=== PATIENT | female | born 1980 | race Caucasian/White ===

== ENCOUNTER 2021-01-01 10:47 | Outpatient (CLI) | payer BC, MEDICAID, SELFPAY ==
--- NOTE | 2021-01-01 11:14 | ECG_ITS ---
[facility] Test Date: 2021-01-01 Pat Name: Jasmine Vanegas Department: Room: Gender: Female Legal Executive: : 1980 Requested By: Margie Scanlon Order Number: [id number] Major MD: Halley Agrawal M.D. Interpretive Statements NAME OF STUDY: TREADMILL STRESS TEST INDICATION: Chest Pain Baseline blood pressure of 115/71 mm Hg, heart rate 69 beats per minute. EKG showed normal sinus rhythm, normal axis with non specific T wave abnormality. ??? The patient exercised for 7 minutes and 1 second on a [standard Chele protocol]. Patient attained a maximum heart rate of 162 beats per minute( 90% of the maximum predicted heart rate) with a blood pressure at the peak exercise of 155/64 mm Hg. The EKG at the peak exercise revealed sinus tachycardia with no significant ST-T wave changes. Patient did not have any chest pain or any significant arrhythmis with the exercise. During the recovery phase, there were no new changes. ??? Blood pressure at the end of the recovery phase was 152/83 mm Hg with a heart rate of 97 beats per minute. ??? CONCLUSION: 1. Normal EKG response to treadmill exercise. 2. No exercise-induced chest pain or cardiac arrhythmia. 3. Fair exercise tolerance, attained a maximum of 10.2 METs. Maximum VO2 of 35.7 ml/kg/min. 4. Baseline normal blood pressure with normal response to exercise. Electronically Signed On 01-04-2021 20:40:13 CDT by Halley Agrawal M.D. [id number]
[2021-01-01 11:22] VITALS: BMI 30.1
[2021-01-01 11:50] VITALS: BP 152/87; PULSE 99
== END 2021-01-01 10:48 | disposition home or self-care (01) ==
LOC: CDL 10:51
PROVIDERS: PCP Nurse Practitioner Family; Visit Provider Nurse Practitioner Family
DX: R07.9 Chest pain, unspecified (principal)
CPT/HCPCS: 93017

== ENCOUNTER 2021-02-12 13:03 | Outpatient (CLI) | payer BC, MEDICAID, SELFPAY ==
--- NOTE | 2021-02-12 13:11 | US_ITS ---
WS: [id number] ULTRASOUND THYROID TECHNIQUE: Ultrasound of the thyroid. CLINICAL INFORMATION: NECK SWELLING COMPARISON: None. FINDINGS: Thyroid: Right and left thyroid lobes are normal in size and echotexture. Cystic appearing right-sided nodules with comet tail artifact consistent with colloid cysts. A few subcentimeter cystic lesions left thyroid. No solid lesions. No lesions to target for biopsy. Right thyroid lobe: 4.1 cm x 1.6 cm x 1.4 cm Left thyroid lobe: 4.2 cm x 1.3 cm x 1.6 cm. Isthmus: 0.3 mm. Cervical lymphadenopathy: None. US/US thyroid 55052 IMPRESSION: 1. Thyroid is normal in size and echotexture. 2. Cystic subcentimeter RIGHT thyroid nodules with echogenic foci consistent w ith colloid cysts. 3. A few incidental subcentimeter left thyroid cysts. 4. No lesions to target for biopsy.
--- NOTE | 2021-02-12 13:34 | USCV_ITS ---
Jasmine Vanegas Age: 40 Gender: F : 1980 Exam Date: 02/12/2021 13:39 Ordering Phys: Margie Gallardo Technologist: Montserrat Egan Exam Location: [facility]_ Indication: SOB BP: / HR: 61 Rhythm: Sinus Technical Quality: Adequate MEASUREMENTS (Male / Female) Normal Values 2D ECHO LV Diastolic Diameter PLAX 3.7 cm 4.2 - 5.9 / 3.9 - 5.3 cm LV Systolic Diameter PLAX 3.4 cm LV Chamber Size 4.2 cm IVS Diastolic Thickness 1.1 cm 0.6 - 1.0 / 0.6 - 0.9 cm IVS Systolic Thickness 1.2 cm LVPW Diastolic Thickness 1.2 cm 0.6 - 1.0 / 0.6 - 0.9 cm LVPW Systolic Thickness 1.4 cm RV Chamber Size 3.6 cm LVOT Diameter 2.0 cm LV Ejection Fraction 2D Teich 23.2 % LV Ejection Fraction MOD 2C 65.0 % LV Ejection Fraction 2C AL 64.4 % LA Diameter 3.0 cm LA Width 2.9 cm LA Height 4.3 cm RA Width 3.4 cm RA Height 4.2 cm Aorta at Sinotubular Diameter 2.7 cm M-MODE LV Diastolic Diameter MM 5.4 cm 4.2 - 5.9 / 3.9 - 5.3 cm LV Systolic Diameter MM 2.3 cm LV Ejection Fraction MM Teich 86.9 % IVS Diastolic Thickness MM 0.7 cm 0.6 - 1.0 / 0.6 - 0.9 cm IVS Systolic Thickness MM 1.1 cm LVPW Diastolic Thickness MM 1.1 cm 0.6 - 1.0 / 0.6 - 0.9 cm LVPW Systolic Thickness MM 1.3 cm Aortic Annulus Diameter 2.0 cm LA Ao Ratio MM 1.5 MV E Point Septal Separation 0.3 cm DOPPLER AV Peak Velocity 114.0 cm/s LVOT Peak Velocity 79.0 cm/s AV Area Cont Eq vti 2.4 cm squared AV Area Cont Eq pk 2.2 cm squared MV Area PHT 2.2 cm squared Mitral E to A Ratio 1.2 MV E' Velocity 45.0 cm/s Mitral E to MV E' Ratio 8.4 Mitral E to LV E' Lateral Ratio 8.4 Mitral E to LV E' Septal Ratio 8.5 TR Peak Velocity 198.6 cm/s TR Peak Gradient 15.8 mmHg TR Mean Velocity 171.2 cm/s TR Mean Gradient 12.5 mmHg TR Velocity Time Integral 75.6 cm TV Peak E Velocity 53.0 cm/s Right Atrial Pressure 3.0 mmHg Pulmonary Artery Systolic Pressu 18.8 mmHg PV Peak Velocity 59.0 cm/s RV Acceleration Time 0.2 s RV Ejection Time 0.4 s RV AcT/ET 0.6 FINDINGS Left Ventricle Normal left ventricular cavity size. Normal left ventricular systolic function. No regional wall motion abnormalities. Left ventricular ejection fraction is estimated at 60 %. Grade I/IV diastolic dysfunction (abnormal relaxation filling pattern), normal to mildly elevated filling pressures. Right Ventricle The right ventricle is normal in size and function. Right Atrium The right atrium is normal in size. Left Atrium The left atrium is normal in size. Mitral Valve Structurally normal mitral valve without significant stenosis or prolapse. There is no mitral regurgitation. Aortic Valve Structurally normal aortic valve without significant sclerosis or stenosis. There is no aortic regurgitation. Tricuspid Valve Structurally normal tricuspid valve without significant stenosis or regurgitation. Pulmonary artery systolic pressure is normal. Pulmonic Valve Structurally normal pulmonic valve without significant stenosis. There is no pulmonic regurgitation. Pericardium Normal pericardium without effusion. Aorta Normal ascending aorta dimension. CONCLUSIONS 1-Normal left ventricular cavity size. Normal left ventricular systolic function. No regional wall motion abnormalities. Left ventricular ejection fraction is estimated at 60 %. Grade I/IV diastolic dysfunction (abnormal relaxation filling pattern), normal to mildly elevated filling pressures. 2-There is no pericardial effusion. 3-No significant valve abnormalities. 4-Pulmonary artery systolic pressure is within normal limits. 5-Right atrial pressure is around 5 mm of mercury. 6-There are no prior echocardiogram studies to compare. Maria Fernanda Ivy MD (Electronically Signed) Final Date: 12 Feb 2021 18:04 S
== END 2021-02-12 13:04 | disposition home or self-care (01) ==
PROVIDERS: PCP Nurse Practitioner Family; Visit Provider Nurse Practitioner Family
DX: R22.1 Localized swelling, mass and lump, neck (principal); R06.02 Shortness of breath; E04.1 Nontoxic single thyroid nodule
CPT/HCPCS: 76536; 93306

== ENCOUNTER → 2021-10-06 10:08 | Outpatient (BNVA) | payer BC, MEDICAID, SELFPAY | PROVIDERS: PCP Nurse Practitioner Family; Visit Provider Family Medicine | DX: Z76.89 Persons encountering health services in other specified circumstances (principal); R00.2 Palpitations; E07.89 Other specified disorders of thyroid; R63.5 Abnormal weight gain | CPT/HCPCS: 80053; 84439; 84443; 85025 ==

== ENCOUNTER → 2021-10-13 13:30 | Outpatient (BNVA) | payer BC, MEDICAID, SELFPAY | PROVIDERS: PCP Family Medicine; Visit Provider Family Medicine | DX: Z12.4 Encounter for screening for malignant neoplasm of cervix (principal) | CPT/HCPCS: 87624; 88175 ==

== ENCOUNTER 2022-05-28 14:37 | Outpatient (CLI) | payer BC, MEDICAID, SELFPAY ==
--- NOTE | 2022-05-28 14:46 | US_ITS ---
WS: [id number] THYROID ULTRASOUND HISTORY: NONTOXIC SINGLE THYROID NODULE COMPARISON: 02/12/2021 Right lobe: 1.8 cm x 1.5 cm x 5.2 cm (w x ap x l). Volume: 7.1 cm3. Normal size gland. Multiple colloid cysts are present scattered throughout the RIGHT gland. There is a predominantly solid nodule in the mid gland measuring 1.1 x 0.7 x 1.2 cm. This nodule is in the pos terior gland does have increased vascularity. No echogenic foci in the margins are ill-defined. Left lobe: 1.2 cm x 1.1 cm x 4.0 cm (w x ap x l). Volume: 2.6 cm3. Normal size and echotexture. No significant or dominant nodules are present. Isthmus: 0.3 cm. US/US thyroid 26892 IMPRESSION: 1. Small mid RIGHT thyroid nodule with indeterminate features. Not recommended for biopsy based upon the ACR TI-RADS recommendations. 2. Benign RIGHT colloid cyst.
== END 2022-05-28 14:38 | disposition home or self-care (01) ==
LOC: RAD 14:38
PROVIDERS: PCP Family Medicine; Visit Provider Registered Nurse
DX: R91.1 Solitary pulmonary nodule (principal); E04.1 Nontoxic single thyroid nodule
CPT/HCPCS: 76536

== ENCOUNTER 2025-08-17 13:37 | Emergency (ER) | payer BC, MEDICAID, SELFPAY ==
--- OUTSIDE RECORDS SUMMARY | 2025-08-17 13:43 | XMS_ITS | Data Portability ---
Author Organization [facility] Address [address] [address] Care Team Providers Care Yarn Wrapper Name Role Phone ROLO HATCH Primary Care Provider Assessment No assessment recorded. Plan of Treatment Reminders Order Date Submit Date Provider Last Modified By Organization Details Last Modified Time Details Appointments None recorded. Lab culture, urine 2024 025 [facility] [employer], [address] [place], [address], 22:07:50 urinalysis, dipstick [address] [facility] ([facility]), [address] [place], [address], 11:30:06 Referral None recorded. Procedures None recorded. Surgeries None recorded. Imaging None recorded. Medication Orders amoxicillin 875 mg-potassiu m clavulanate 125 mg tablet 2024 025 [facility] #[id number], [address], [address], 05:01:22 Patient TargetsNo targets recorded. Patient InstructionsNo instructions recorded. Reason for Referral None Reported. Results Created Date Observation Date Name Description Value Unit Range Abnormal Flag Note LastModifiedBy Organization Detail LastModifiedTime 02/05/20 25 02/05/2025 CULTU RE, URINE , ROUTI NE culture, urine, routine SEE NOTE CULTU RE, URINE , ROUTI NE Micro Numbe r: [id number] Test Statu s: Final Speci men Sourc e: Urine , clean catch Speci men Quali ty: Adequ ate Resul t: No Growt h Not Available [employer] [facility] [address] [place], [address], 02/05/2025 22:07:49 02/05/20 25 02/04/2025 urina lysis , dipst ick Leukocytes Negati ve Not Available [facility] ([facility]) [address] [place] [address], [address], 02/04/2025 11:16:48 02/05/20 25 02/04/2025 urina lysis , dipst ick Nitrite negati ve Not Available [facility] ([facility]) [address] [place] [address], [address], 02/04/2025 11:16:48 02/05/20 25 02/04/2025 urina lysis , dipst ick Urobilinogen .2 Not Available [facility] ([facility]) [address] [place] [address], [address], 02/04/2025 11:16:48 02/05/20 25 02/04/2025 urina lysis , dipst ick Protein Negati ve Not Available [facility] ([facility]) [address] [place] [address], [address], 02/04/2025 11:16:48 02/05/20 25 02/04/2025 urina lysis , dipst ick pH 7.0 Not Available [facility] ([facility]) [address] [place] [address], [address], 02/04/2025 11:16:48 02/05/20 25 02/04/2025 urina lysis , dipst ick Blood Negati ve Not Available [facility] ([facility]) [address] [place] [address], [address], 02/04/2025 11:16:48 02/05/20 25 02/04/2025 urina lysis , dipst ick Specific Hillman 1.015 Not Available [facility] ( [facility]) [address] [place], [address], 02/04/2025 11:16:48 02/05/20 25 02/04/2025 urina lysis , dipst ick Ketone Negati ve Not Available [facility] ([facility]) [address] [place], [address], 02/04/2025 11:16:48 02/05/20 25 02/04/2025 urina lysis , dipst ick Bilirubin Negati ve Not Available [facility] ([facility]) [address] [place], [address], 02/04/2025 11:16:48 02/05/20 25 02/04/2025 urina lysis , dipst ick Glucose Negati ve Not Available [facility] ([facility]) [address] [place], [address], 02/04/2025 11:16:48 02/05/20 25 02/04/2025 urina lysis , dipst ick Appearance Clear Not Available [facility] ([facility]) [address] [place], [address], 02/04/2025 11:16:48 02/05/20 25 02/04/2025 urina lysis , dipst ick Color Yellow Not Available [facility] ([facility]) [address] [place], [address], 02/04/2025 11:16:48 Result Notes None recorded. Medical Equipment None Reported. Allergies No known drug allergies Medications Name Sig Start Date Stop Date Status Note LastModified by Organization Details LastModified Time lisinopril 10 mg tablet TAKE 1 TABLET BY MOUTH DAILY 04/28 /2025 completed Not Available Not Available Not Available amoxicillin 875 mg-potassium clavulanate 125 mg tablet Take 1 tablet every 12 hours by oral route for 7 days. 02/18 completed Not Available Not Available Not Available escitalopram 20 mg tablet TAKE 1 TABLET BY MOUTH EVERY DAY 02/04 completed Not Available Not Available Not Available Vitals Date Recorded Body weight Body mass index (BMI) Body height Body temperature Heart rate Oxygen saturation Oxygen saturation in Arterial blood by Pulse oximetry Systolic And Diastolic Provider Name and Address Organization Details Last Updated DateTime 5 55187.7 3 g 35.1 kg/m2 160.02 cm 98.2 [degF] 76 /min 98 % 98 % 142/86 mm[Hg] Mily Osp[facility] 11:05:39 Social History None recorded. Functional Status None recorded. Mental Status None recorded. Family History Nothing Reported. Medical History No medical history recorded. Gynecological HistoryNo gynecological history recorded. Obstetrics History GPAL:G 0 P 0 0 0 0 Immunizations Vaccine Type Date Status Note Provider Nam e and Address Organization Details Recorded Time Td (adult), 2 Lf tetanus toxoid, preservative free, adsorbed 5 completed Not Available [facility] 02/04/2025 10:49:57 Td (adult), 2 Lf tetanus toxoid, preservative free, adsorbed 0 completed Not Available [facility] 02/04/2025 10:49:57 Tdap 3 completed Not Available [facility] 02/04/2025 10:49:57 Tdap 6 completed Not Available [facility] 02/04/2025 10:49:57 Hep B, adult 3 completed Not Available [facility] 02/04/2025 10:49:57 Influenza, split virus, quadrivalent, PF 3 completed Not Available [facility] 02/04/2025 10:49:57 Past Encounters Encounter ID Performer Location Encounter Start Date Encounter Closed Date Diagnosis/Indication Diagnosis SNOMED-CT Code Diagnosis ICD10 Code Diagnosis IMO Codes Diagnosis Note [id number] JACKI MCKEON [facility] ([facility]) [address] [place] [address] 02/04/2025 10:48:28 02/04/2025 11:26:39 Dysuria 56136214 R30.0 74335 Normal urine dip. Will send for culture. Discussed to take antibiotic as prescribed until completedU rine culture ordered - will notify of any resultsEdu cated patient on increasing PO fluids of water, decreasing caffeine (coffee) and sugary drinks.Dis cussed importance of avoiding baths, scented soaps, douching, perfumes.M ay take OTC AZO for 1-2 days as box directs for burning sensation. Discussed if developmen t of abdominal pain, flank pain, fever, vomiting, worsening symptoms return to walk-in, PCP or ED for re-evaluat ion. Return to clinic if any changes, any worsening, any concernsPa tient verbalized understand ing of plan. Allergic disposition 609 647157 J30.89 [id number] May use otc meds like zyrtec and fluticason e nasal spray as needed for symptoms. Return to clinic with any new or worsening symptoms. Health Concerns Section Related Observation LastModified by Organization Detai ls LastModified Time None Recorded Concern Status LastModified by Organization Details LastModified Time None Recorded Advance Directives Directive None Recorded Payers Insurance Date Sequence Insurance Name Policy Number Policy [place] Covered Member ID [place] Member ID Guarantor Name 02/04/2025 1 [employer] [place]PLAC[place] - HMO) [id number] Jasmine Vanegas [id number] Jasmine Vanegas Notes Date Note Type Note Provider Name and Address Organization Details Recorded Time 02/04/2025 text/html ROS as noted in the HPI walk in ptPt has cough, chest congestion and runny nose for 3 weeks. Patient has had some nasal discharge but states that this is clear. Has used benadryl with improvement. Patient states that the also had right flank pain, urinary frequency, foul odor and some urinary incontinence. She states that she found some old Bactrim and has been taking it the last 2 days with improvement of symptoms. Is worried that they will return if she doesn't keep taking it. LIMA MAC, JACKI [address] [place], [address], [facility], Nathanael 02/04/2025 11:24:50 OBGyn Episode No OBEpisode recorded.
[2025-08-17 13:45] VITALS: BP 181/101; PULSE 85; RESP 14; TEMP 36.5; O2SAT 95; BMI 35.4
--- NOTE | 2025-08-17 13:53 | ECG_ITS ---
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
[2025-08-17 15:50] LABS: Hematocrit 41.5 % (36-47); Hemoglobin 13.90 g/dL (11.27-16.99); Mean Corpuscular HGB Conc 33.5 g/dL (30-55); Mean Corpuscular Hemoglobin 30.8 pg (27-33); Mean Corpuscular Volume 91.8 fl (85-98); Nucleated Red Blood Cells % 0 %; Platelet Count 320 10^3/cmm (157-399); Red Blood Count 4.52 10^6/uL (3.85-5.65); White Blood Count 8.23 10^3/uL (3.29-11.43)
[2025-08-17 16:07] LABS: Anion Gap 16.9 (5-19); Blood Urea Nitrogen 18 mg/dL (6-20); Calcium 9.2 mg/dL (8.5-10.5); Carbon Dioxide 24 mmol/L (22-29); Chloride 102 mmol/L (98-107); Creatinine Clr Calc Pharmacy 126.5966; Glucose 94 mg/dL (65-115); Osmolality Calculated 290 mOsm/kg (285-295); Potassium 3.9 mmol/L (3.5-5.1); Sodium 139 mmol/L (136-145)
[2025-08-17] MEDS: METOCLOPRAMIDE HCL 10 MG/10 ML UDC PO (16:29)
[2025-08-17 16:34] VITALS: BP 182/108; PULSE 76; RESP 16; O2SAT 99
--- NOTE | 2025-08-17 17:51 | ED_ITS ---
HPI - General Adult 2 General: Chief complaint: General Medical Stated complaint: rt eye blurry/bloodshot/weakness Time Seen by Provider: 08/17/25 15:22 History of Present Illness: 44-year-old female past medical history significant for hypertension, previously on lisinopril 10 mg which she discontinued about a year ago, presenting to the emergency department with several months of nonspecific neck stiffness and pain, intermittent headaches, intermittent blurry vision, today grew concerned because she noticed a red spot in the right side of her eye, she reports that her vision is occasionally blurry but is not particularly blurry today, she denies diplopia, she denies chest pain or palpitations. Related Data Previous Rx's ?Medication ?Instructions ?Recorded lisinopril 10 mg tablet 10 mg PO DAILY 2 months #60 tabs 08/17/25 Allergies Allergy/AdvReac Type Severity Reaction Status Date / Time No Known Allergies Allergy Verified 08/17/25 13:51 PFSH ED 2 PFSH: Family History Father Diabetes Hypertension Mother Diabetes Hypertension Social History Smoking and tobacco/nicotine status: never used tobacco/nicotine Second hand smoke exposure: No Alcohol intake: never Substance/Drug Use: never Physical Exam 2 Narrative: EXAM NARRATIVE: Gen: A&Ox4, no acute distress, nontoxic appearing HEENT: Normocephalic, atraumatic, no scleral icterus, external ears normal, moist mucous membranes Eye: Tiny conjunctival hemorrhage to the right eye lateral to the iris, pupils are equal and reactive to light, visual acuity grossly intact, no visual field cuts, no diplopia, no disconjugate gaze, no relative afferent pupillary defect Neck: Supple, full range of motion, no observable masses Lungs: No Respiratory distress, Lungs clear to auscultation bilaterally no rales, rhonchi, wheezing CV: Regular rate and rhythm, no murmur, no pitting edema to lower extremities bilaterally Abdomen: Soft, nondistended, nontender to palpation MSK: No joint swelling, FROM all 4 extremities Skin: No rashes, petechiae, lesions. Normal color per patient. Neuro: Alert and oriented, no slurred speech, sensation and strength grossly intact all 4 extremities Psych: Appropriate for situation. Course 2 Vital Signs: Vital signs: Vital Signs Temperature 97.7 F 08/17/25 13:45 Pulse Rate 76 08/17/25 16:34 Respiratory Rate 16 08/17/25 16:34 Blood Pressure 182/108 08/17/25 16:34 Pulse Oximetry 99 08/17/25 16:34 Oxygen Delivery Me thod Room Air 08/17/25 13:45 MDM - General Adult Medical Decision Making 44-year-old female history hypertension presenting with several month history of neck stiffness and pain, elevated blood pressure readings, blurry vision, no focal or acute neurologic deficits on exam, patient self discontinued lisinopril a year ago in favor of a nonmedication approach but reports that she has been working hard lately, I did have an extensive counseling discussion with her that lifestyle changes should happen in conjunction with her medication until she is able to wean off slowly as opposed to being abruptly discontinued and offered to restart her medication which she is in agreement with. I did have an extensive discussion with her on the management of hypertension in the emergency department as well as the management more generally in the outpatient setting and why low slow reductions in blood pressure are preferable to rapid reduction. Her blood testing does not show any evidence of hypertensive emergency or acute endorgan dysfunction, she is stable to be discharged with resumption of her oral lisinopril, stress reduction techniques, follow-up with her PCP to discuss further medication changes. I did discuss return precautions to include worsening of her vision, severe headaches that do not improve with OTC medications, chest pains, decreased urine output or change in color or consistency of her urine, or any other concerns.. Lab Data Labs showing no anemia or leukocytosis, normal kidney function, normal electrolytes 08/17/25 15:35 08/17/25 15:35 Laboratory Results WBC 8.23 10^3/uL (3.29-11.43) 08/17/25 15:35 RBC 4.52 10^6/uL (3.85-5.65) 08/17/25 15:35 Hgb 13.90 g/dL (11.27-16.99) 08/17/25 15:35 Hct 41.5 % (36-47) 08/17/25 15:35 MCV 91.8 fl (85-98) 08/17/25 15:35 MCH 30.8 pg (27-33) 08/17/25 15:35 MCHC 33.5 g/dL (30-55) 08/17/25 15:35 RDW 11.8 % (12.1-15.1) L 08/17/25 15:35 Plt Count 320 10^3/cmm (157-399) 08/17/25 15:35 MPV 9.3 fL (7.4-10.4) 08/17/25 15:35 Neut % (Auto) 58.4 % 08/17/25 15:35 Lymph % (Auto) 28.9 % 08/17/25 15:35 Bremer % (Auto) 7.3 % 08/17/25 15:35 Eos % (Auto) 4.5 % 08/17/25 15:35 Baso % (Auto) 0.5 % 08/17/25 15:35 Neut # (Auto) 4.81 10^3/uL (1.8-7.7) 08/17/25 15:35 Lymph # (Auto) 2.4 10^3/uL (0.8-4.8) 08/17/25 15:35 Bremer # (Auto) 0.6 10^3/uL (0.2-0.9) 08/17/25 15:35 Eos # (Auto) 0.4 10^3/uL (0.0-0.8) 08/17/25 15:35 Baso # (Auto) 0.0 10^3/uL (0.0-0.1) 08/17/25 15:35 Nucleated RBC % (auto) 0 % 08/17/25 15:35 Nucleated RBCs # 0.0 /100WBC 08/17/25 15:35 Sodium 139 mmol/L (136-145) 08/17/25 15:35 Potassium 3.9 mmol/L (3.5-5.1) 08/17/25 15:35 Chloride 102 mmol/L (98-107) 08/17/25 15:35 Carbon Dioxide 24 mmol/L (22-29) 08/17/25 15:35 Anion Gap 16.9 (5-19) 08/17/25 15:35 BUN 18 mg/dL (6-20) 08/17/25 15:35 Creatinine 0.6 mg/dL (0.5-0.9) 08/17/25 15:35 GFR Calculation 108.1 mL/min (90-130) 08/17/25 15:35 Glucose 94 mg/dL (65-115) 08/17/25 15:35 Calculated Osmolality 290 mOsm/kg (285-295) 08/17/25 15:35 Calcium 9.2 mg/dL (8.5-10.5) 08/17/25 15:35 No radiology studies performed this visit EKG Data EKG 1: I personally reviewed and interpreted this EKG as follows: EKG interpretation date: 08/17/25 EKG interpretation time: 13:53 Interpretation: Sinus rhythm at 66 bpm, no STEMI, no ectopy, QTc 402 ms Discharge Plan Discharge Patient Disposition: Home Clinical Impression: Accelerated essential hypertension Condition: Stable Prescriptions: New lisinopril 10 mg tablet 10 mg PO DAILY 60 Days Qty: 60 0RF Discharge Orders: Discharge ED (Routine); Ordered 08/17/25 Ordered By: Kwaku Gardner Referrals: Marcus Garcia DO [Primary Care Provider, Family Practice] Milo White [Referring, Opthalmology] Patient Instructions: Chronic Hypertension (ED), Patient Portal & Kumar Instructions Print Language: Belarusian Coding Level of Care Code ED Full Charge Bookkeeper for Chg Neftaly
[2025-08-17 18:06] VITALS: BP 174/112; PULSE 72; RESP 16; O2SAT 99
== END 2025-08-17 18:05 | disposition home or self-care (01) ==
PROVIDERS: Emergency Provider Student in an Organized Health Care Education/Training Program; PCP Family Medicine
DX: I10 Essential (primary) hypertension (principal)
CPT/HCPCS: 36415; 80048; 85025; 93005; 99284; J9999